=== PATIENT | female | born 1965 | race Caucasian/White ===

== ENCOUNTER 2020-10-08 06:27 | Outpatient (REF) | payer OTHER, SELFPAY ==
[2020-10-08 07:47] LABS: MANUAL DIFF FLAG NO
[2020-10-08 07:53] LABS: Basophils Absolute Auto 0.1 X10*3/uL (0.0-0.2); Basophils Percent Auto 0.9 % (0-2); Eosinophils Absolute Auto 0.2 X10*3/uL (0.0-0.4); Eosinophils Percent Auto 3.3 % (0-4); Hematocrit 43.9 % (37-47); Hemoglobin 14.3 g/dl (12.0-16.0); Imm Gran Abs Auto 0.01 X10*3/uL (0.00-0.03); Imm Gran Pct Auto 0.2 % (0.0-0.4); Lymphocytes Absolute Auto 2.2 X10*3/uL (1.2-4.9); Lymphocytes Percent Auto 37.7 % (20-40); Mean Corpuscular HGB Conc 32.6 g/dl (31.0-35.0); Mean Corpuscular Volume 92.2 fL (80-98); Mean Platelet Volume 9.9 fL (9.4-12.3); Monocytes Absolute Auto 0.4 X10*3/uL (0.1-1.2); Monocytes Percent Auto 7.2 % (2-11); Neutrophils Absolute Auto 2.9 X10*3/uL (2.0-8.3); Neutrophils Percent Auto 50.7 % (45-73); Platelet Count 276 X10*3/uL (160-400); Red Blood Count 4.76 X10*6/uL (4.20-5.50); Red Cell Distribution Width 12.9 % (11.0-16.0); White Blood Count 5.7 X10*3/uL (4.8-10.8)
[2020-10-08 08:17] LABS: Alanine Aminotransferase 14 U/L (0-31); Albumin Level 4.3 g/dL (3.5-5.0); Alkaline Phosphatase 82 U/L (39-117); Anion Gap 14 (12-20); Aspartate Amino Transferase 16 U/L (5-31); Bilirubin Total 0.3 mg/dL (0.0-1.0); Blood Urea Nitrogen 22 mg/dL (9-16); Calcium 9.4 mg/dL (8.4-10.2); Carbon Dioxide 25 mmol/L (22-29); Chloride 109 mmol/L (96-108); Cholesterol 237 mg/dL; Estimated Glomerular Filt Rate > 60; Glucose Fasting 100 mg/dL (60-99); HDL Cholesterol 75 mg/dL; LDL Cholesterol Calculated 151 mg/dl; Sodium 143 mmol/L (135-145); Total Protein 6.6 g/dL (6.5-8.0); Triglycerides 56 mg/dL
[2020-10-08 08:27] LABS: Thyroid Stimulating Hormone 1.01 uIU/mL (0.32-4.0)
[2020-10-12 20:37] LABS: Vitamin D 25-OH, D2 <4 ng/mL; Vitamin D 25-OH, D3 33 ng/mL; Vitamin D 25-OH, Total 33 ng/mL (30-100)
== END 2020-10-08 06:28 | disposition home or self-care (01) ==
LOC: HO.LAB 06:27
PROVIDERS: PCP Internal Medicine; Visit Provider Internal Medicine
DX: E66.3 Overweight (principal); E55.9 Vitamin D deficiency, unspecified
CPT/HCPCS: 36415; 80053; 80061; 82306; 84443; 85025

== ENCOUNTER 2020-10-15 08:30 | Outpatient (REF) | payer OTHER, SELFPAY ==
--- NOTE | ~2020-10-15 | XR_ITS ---
EXAMINATION: XR LUMBOSACRAL SPINE CLINICAL INFORMATION: Sciatica right side. COMPARISON: 04/11/2016 TECHNIQUE: Three views of the lumbosacral spine. FINDINGS: There are 5 nonrib-bearing lumbar vertebra. No acute fracture, spondylolisthesis, or spondylolysis identified. There is some marginal spurring seen at the 3-4 disc space level. Pedicles are intact. Sacroiliac joints unremarkable. There is calcification seen anterior to the L2 and L3 vertebral bodies which may be vascular in nature or posttraumatic. XR/XR lumbar spine 2-3V IMPRESSION: No significant lumbar spine abnormality appreciated. Stable appearance compared to previous study of 04/11/2016.
== END 2020-10-15 08:31 | disposition home or self-care (01) ==
LOC: HO.XRAY 08:30
PROVIDERS: PCP Internal Medicine; Visit Provider Internal Medicine
DX: M54.31 Sciatica, right side (principal)
CPT/HCPCS: 72100

== ENCOUNTER 2021-10-04 07:49 | Outpatient (REF) | payer OTHER, SELFPAY ==
--- NOTE | ~2021-10-04 | MM_ITS ---
EXAMINATION: MM SCREENING DIGITAL BREAST TOMOSYNTHESIS, BILATERAL CLINICAL INFORMATION: Screening. Asymptomatic. The lifetime risk of breast cancer based on the Tyrer-Cuzick Model is 13%. COMPARISON: Mammography: 07/23/2017, 03/08/2016. TECHNIQUE: Digital breast tomosynthesis is performed in both the craniocaudal and mediolateral oblique views along with computer-aided detection (CAD). Synthesized 2D images are generated from the tomosynthesis. FINDINGS: There are scattered areas of fibroglandular density (ACR BI-RADS breast composition Category b). There are no significant masses, abnormal calcifications, or other abnormalities. Parenchymal pattern is similar to prior studies. No developing density or interval architectural abnormality. The skin contours are smooth. MM/MM tomosynthesis screening BI IMPRESSION: No mammographic evidence of malignancy. ASSESSMENT: BI-RADS 1: Negative RECOMMENDATION: Routine annual mammography screening. This patient's information was entered into a reminder system with a target due date for their next mammogram.
[2021-10-04 09:10] LABS: Alanine Aminotransferase 14 U/L (0-31); Albumin Level 4.3 g/dL (3.5-5.0); Alkaline Phosphatase 83 U/L (39-117); Anion Gap 11 (12-20); Aspartate Amino Transferase 16 U/L (5-31); Bilirubin Total 0.4 mg/dL (0.0-1.0); Blood Urea Nitrogen 20 mg/dL (9-16); Calcium 9.5 mg/dL (8.4-10.2); Carbon Dioxide 28 mmol/L (22-29); Chloride 106 mmol/L (96-108); Cholesterol 253 mg/dL; Estimated Glomerular Filt Rate > 60; Glucose Fasting 102 mg/dL (60-99); HDL Cholesterol 70 mg/dL; LDL Cholesterol Calculated 173 mg/dl; Potassium 5.1 mmol/L (3.3-5.1); Sodium 140 mmol/L (135-145); Total Protein 6.8 g/dL (6.5-8.0); Triglycerides 54 mg/dL
[2021-10-08 13:20] LABS: Vitamin D 25-OH, D2 <4 ng/mL; Vitamin D 25-OH, D3 70 ng/mL; Vitamin D 25-OH, Total 70 ng/mL (30-100)
== END 2021-10-04 07:50 | disposition home or self-care (01) ==
LOC: HO.MAMMO 07:49
PROVIDERS: PCP Internal Medicine; Visit Provider Internal Medicine
DX: Z12.31 Encounter for screening mammogram for malignant neoplasm of breast (principal); E78.5 Hyperlipidemia, unspecified; E78.00 Pure hypercholesterolemia, unspecified; E55.9 Vitamin D deficiency, unspecified
CPT/HCPCS: 36415; 77063; 77067; 80053; 80061; 82306

== ENCOUNTER 2022-03-10 08:32 | Emergency (ER) | payer OTHER, SELFPAY ==
--- NOTE | ~2022-03-10 | XR_ITS ---
EXAMINATION: XR SHOULDER, LEFT CLINICAL INFORMATION: Anterior shoulder pain COMPARISON: None TECHNIQUE: AP external rotation, Grashey, scapular Y, and axillary views of the left shoulder. FINDINGS: The bones and soft tissues are normal. No fracture. Glenohumeral and acromioclavicular alignment is anatomic with normal joint space. No abnormal soft tissue calcifications. XR/XR shoulder LT min 2V IMPRESSION: Normal left shoulder.
[2022-03-10 08:37] VITALS: BP 134/97; PULSE 84; RESP 16; TEMP 36.4; O2SAT 100; BMI 27.8
--- NOTE | 2022-03-10 08:58 | ED_ITS ---
HPI - Extremity Problem General Chief complaint: Extremity Injury, Upper Stated complaint: L Arm Pain No Injury Time Seen by Provider: 03/10/22 08:57 Source: patient Mode of arrival: ambulatory Limitations: no limitations History of Present Illness HPI Narrative: 56 yo female with no significant medical history presents to the ER for evaluation of nontraumatic left shoulder pain that started while she was at work 2 days ago. She reports the pain was gradual and has slowly gotten worse over the last couple of days. She reports the pain is located in the anterior aspect of her left shoulder, worse with palpation and any movement. She states she is now having difficulty washing her hair, getting dressed. She reports the pain is throbbing in nature and she has been taking naproxen with brief improvement i n the pain. Once the naproxen wears off the pain returns. She states the pain is starting to extend into the proximal upper arm. She has no numbness, weakness, tingling. 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 MD Complaint: joint pain Onset (ago): day(s) (2) Pain Consistency: constant Location: left and upper extremity Severity scale (1-10): 7 Quality: aching and other (Throbbing) Radiation: distal Relieving factors: immobilization and medication Exacerbating factors: range of motion and palpation Associated symptoms: denies other symptoms Related Data Home Medications Medication Instructions Recorded Confirmed amitriptyline 25 mg tablet 25 mg PO BEDTIME 09/26/21 09/26/21 rizatriptan 10 mg disintegrating 10 mg PO DAILY PRN 09/26/21 09/26/21 tablet topiramate 100 mg tablet 100 mg PO BID 09/26/21 09/26/21 Previous Rx's Medication Instructions Recorded cholecalciferol (vitamin D3) 25 25 mcg PO DAILY 90 days #90 caps 10/04/21 mcg (1,000 unit) capsule naproxen 500 mg tablet 500 mg PO BID PRN pain 30 days #60 03/06/22 tabs oxycodone 5 mg tablet 5 mg PO Q8H PRN severe pain (scale 03/10/22 score 7-10) #7 tabs Allergies Allergy/AdvReac Type Severity Reaction Status Date / Time barium sulfate Allergy Intermediate headache Verified 09/26/21 09:05 codeine [CODEINE] Allergy Intermediate HIVES, rash Verified 09/26/21 09:05 Penicillins [PENICILLINS] Allergy Intermediate HIVES Verified 09/26/21 09:05 cyclobenzaprine AdvReac Intermediate Dizziness Verified 09/26/21 09:05 Review of Systems Review of Systems: Constitutional: No Fever, No Chills Cardiovascular: No Chest Pain, No SOB Gastrointestinal: No Nausea, No Vomiting, No abdominal Pain Musculoskeletal: + joint pain, + Myalgias Skin: No Skin Lesions, No rash Neuro: No Weakness, No Numbness, No Headache Psych: No Anxiety/Panic, No Depression Heme/Lymph: No Bruising, No Lymphadenopathy PMFSH Past Medical History Medical History (Updated 03/10/22 @ 10:15 by GISELL Fay) Encounter for physical examination Headache Hypovitaminosis D Overweight Pure hypercholesterolemia Right sided sciatica Surgical History History of hysterectomy History of tonsillectomy Family History Family History Mother Diabetes Hypertension Father Hepatitis Hypertension Social History Social History Housing: House Alcohol intake: never Patient Tobacco Use Status: Current everyday Tobacco user Tobacco use type: Cigarette Cigarettes Per Day: 15 e-Cigarette/Vaping Use: Never Used Second Hand Smoke Exposure: No Advance Directives: No Advance Directives Information Provided: Yes service: No Current occupational status: employed Current occupational exposures/hazards: No Cognitive needs: No Hearing needs: No Vision needs: No Physical Exam Vital Signs: Vital Signs: Last Vital Signs Temp 97.5 F 03/10/22 08:37 Pulse 84 03/10/22 08:37 Resp 16 03/10/22 08:37 BP 134/97 H 03/10/22 08:37 Pulse Ox 100 03/10/22 08:37 O2 Del Method 03/10/22 08:37 BMI result Body Mass Index 27.8 Appearance: Alert. Oriented X3. No acute distress. HEENT: normal inspection CVS: Normal heart rate and rhythm. Pulses normal. Respiratory: No respiratory distress. Skin: Skin warm and dry. Normal skin color. Normal skin turgor. No rashes. Extremities: Normal inspection of the bilateral shoulders. Anterior pain elicited with abduction at 45 degrees both anterior and laterally. Limited range of motion due to pain. Neurovascularly intact distally. No posterior tenderness. Neuro: Oriented X 3. No motor deficit. No sensory deficit. Course Course Course Narrative: 56-year-old female presents to the ER with nontraumatic left shoulder pain for the last 2 or 3 days. Pain is worse with palpation and range of motion. No injury. X-ray today is normal. She is in the range of motion limitations due to pain. Improvement with NSAIDs. Possible tendinitis or bursitis. Will treat with NSAIDs, pain control. Will provide sling for brief symptomatic relief and have her follow-up with orthopedics. We discussed gentle range of motion pendulum exercises which she will attempt to do once pain is better controlled. Stable for discharge home with outpatient follow-up. Patient agrees with plan. Medications Administered Discontinued Medications Generic Name Dose Route Start Last Admin Trade Name Freq PRN Reason Stop Dose Admin Ketorolac Tromethamine 30 mg 03/10/22 09:44 03/10/22 09:58 Ketorolac Tromethamine 30 Mg/Ml Vial IM 03/10/22 09:45 30 mg ONCE ONE Administration Critical Care Time Critical Care Time Critical Care Time: No Discharge Plan Discharge Clinical Impression: Acute pain of left shoulder Patient Disposition: Home, Self-Care Instructions: Shoulder Bursitis (ED), Shoulder Pain (ED) Additional Instructions: Your x-ray today was normal. Recommend continuing naproxen 2 times a day for the next 5-7 days. Take with food. Take the prescribed narcotic pain medication as needed for severe pain. Where the provided sling for the next 48 hours. After that start with gentle range of motion. Follow-up with orthopedics for further evaluation and treatment. Name and number below. If you develop new or worsening symptoms call 911 or come back to the ER for further evaluation. Prescriptions: New oxycodone 5 mg tablet 5 mg PO Q8H PRN (Reason: severe pain (scale score 7-10)) Qty: 7 0RF Rx Instructions: Partial Fill upon patient request. No Action cholecalciferol (vitamin D3) 25 mcg (1,000 unit) capsule 25 mcg PO DAILY 90 Days Qty: 90 1RF naproxen 500 mg tablet 500 mg PO BID PRN (Reason: pain) 30 Days Qty: 60 1RF amitriptyline 25 mg tablet 25 mg PO BEDTIME topiramate 100 mg tablet 100 mg PO BID rizatriptan 10 mg tablet,disintegrating 10 mg PO DAILY PRN Referrals: [facility] [place] Orthopedic Surgeons [Provider Group] (Nontraumatic left shoulder pain, limited range of motion. X-ray normal.) Stand Alone Forms: Work/School Release Interventions: ED Discharge Assessment Last Done: 03/10/22 10:36
[2022-03-10] MEDS: Ketorolac Tromethamine 30 MG/ML VIAL IM (09:58)
== END 2022-03-10 10:37 | disposition home or self-care (01) ==
PROVIDERS: Emergency Provider Emergency Medicine Emergency Medical Services; PCP Internal Medicine
DX: M25.512 Pain in left shoulder (principal); Z79.899 Other long term (current) drug therapy
CPT/HCPCS: 73030; 96372; 99283; 99284; J1885

== ENCOUNTER 2022-10-05 07:49 | Outpatient (REF) | payer OTHER, SELFPAY ==
--- NOTE | ~2022-10-05 | MM_ITS ---
EXAMINATION: MM SCREENING DIGITAL BREAST TOMOSYNTHESIS, BILATERAL CLINICAL INFORMATION: Screening. Asymptomatic. The lifetime risk of breast cancer based on the Tyrer-Cuzick Model is 12%. COMPARISON: Mammography: 10/04/2021, 07/23/2017, 03/08/2016 TECHNIQUE: Digital breast tomosynthesis is performed in both the craniocaudal and mediolateral oblique views along with computer-aided detection (CAD). Synthesized 2D images are generated from the tomosynthesis. FINDINGS: There are scattered areas of fibroglandular density (ACR BI-RADS breast composition Category b). There are no significant masses, abnormal calcifications, or other abnormalities. No architectural abnormality or developing density or significant change from prior studies. The axilla and skin contours are unremarkable. MM/MM tomosynthesis screening BI IMPRESSION: No mammographic evidence of malignancy. ASSESSMENT: BI-RADS 1: Negative RECOMMENDATION: Routine annual mammography screening. This patient's information was entered into a reminder system with a target due date for their next mammogram.
[2022-10-05 09:40] LABS: Alanine Aminotransferase 12 U/L (0-31); Albumin Level 4.1 g/dL (3.5-5.0); Alkaline Phosphatase 88 U/L (39-117); Anion Gap 11 (12-20); Aspartate Amino Transferase 14 U/L (5-31); Bilirubin Total 0.6 mg/dL (0.0-1.0); Blood Urea Nitrogen 17 mg/dL (9-16); Calcium 9.6 mg/dL (8.4-10.2); Carbon Dioxide 29 mmol/L (22-29); Chloride 106 mmol/L (96-108); Cholesterol 228 mg/dL; Estimated Glomerular Filt Rate > 60; Glucose Fasting 104 mg/dL (60-99); HDL Cholesterol 68 mg/dL; LDL Cholesterol Calculated 144 mg/dl; Potassium 4.1 mmol/L (3.3-5.1); Sodium 142 mmol/L (135-145); Total Protein 6.8 g/dL (6.5-8.0); Triglycerides 84 mg/dL; Vitamin D 25-OH Total 56.4 ng/mL (>30)
== END 2022-10-05 07:50 | disposition home or self-care (01) ==
LOC: HO.MAMMO 07:49
PROVIDERS: PCP Internal Medicine; Visit Provider Internal Medicine
DX: Z00.00 Encounter for general adult medical examination without abnormal findings (principal); E55.9 Vitamin D deficiency, unspecified; E78.5 Hyperlipidemia, unspecified; Z12.31 Encounter for screening mammogram for malignant neoplasm of breast
CPT/HCPCS: 36415; 77063; 77067; 80053; 80061; 82306

== ENCOUNTER 2022-10-10 08:04 | Outpatient (REF) | payer OTHER, SELFPAY ==
--- NOTE | ~2022-10-10 | MM_ITS ---
EXAMINATION: BONE DENSITOMETRY CLINICAL INDICATION: Menopause. COMPARISON: None (current study represents initial baseline exam). TECHNIQUE: Using a [employer] DXA System (software version: 13.1) manufactured by [employer], dual-energy x-ray absorptiometry was performed of the lumbar spine and left hip. The images are of good technical quality. Summary results are attached. FINDINGS: AP SPINE L1-L4: BMD 1.122 g/cm2, Z-score 0.2, T-score -0.5, normal. LEFT FEMUR, NECK: BMD 0.779 g/cm2, Z-score -0.9, T-score -1.9, osteopenia. LEFT FEMUR, TOTAL: BMD 0.952 g/cm2, Z-score 0.1, T-score -0.4, normal. IDENTIFIED RISK FACTORS: Early menopause, hysterectomy, low calcium intake, secondary osteoporosis, tobacco use (current smoker). HISTORY OF FRACTURE: None listed. MEDICATIONS: Vitamin D. MM/XR DEXA axial skeleton IMPRESSION: 1. DIAGNOSIS: Osteopenia based on the lowest T-score value of -1.9 in the femoral neck applying World Health Organization criteria. 2. 10-YEAR FRACTURE RISK PREDICTION, FRAX: Major osteoporotic fracture (clinical spine, forearm, hip or shoulder) 4.7%. Hip fracture 0.8%. 3. Treatment Recommendations: NOF guidelines recommend consideration for treatment in postmenopausal women and men age 50 and older presenting with the following: -A hip or vertebral (clinical or morphometric) fracture. -T-score less than or equal to -2.5 at the femoral neck or spine after appropriate evaluation to exclude secondary causes. -Low bone mass at the hip or spine and a 10-year fracture probability by FRAX of greater than or equal to 3% for hip fracture or greater than or equal to 20% for major osteoporotic fracture based on the [place] adapted WHO algorithm. 4. Other Recommendations: All treatment decisions require clinical judgment and consideration of individual patient factors, including patient preferences, comorbidities, previous drug use, risk factors not captured in the FRAX model (e.g. frailty, falls, vitamin D deficiency, increased bone turnover, interval significant decline in bone density) and possible under or overestimation of fracture risk by FRAX. Additional medical evaluation for secondary cause of low bone mineral density may be appropriate. FUTURE SCAN RECOMMENDATION: People with diagnosed cases of osteoporosis or at high risk for fracture should have regular bone mineral density tests. For patients eligible for Medicare, routine testing is allowed once every 2 years. The testing frequency can be increased to one year for patients who have rapidly progressing disease, those who are receiving or discontinuing medical therapy to restore bone mass, or have additional risk factors.
== END 2022-10-10 08:05 | disposition home or self-care (01) ==
LOC: HO.MAMMO 08:04
PROVIDERS: PCP Internal Medicine; Visit Provider Internal Medicine
DX: Z13.820 Encounter for screening for osteoporosis (principal); Z78.0 Asymptomatic menopausal state
CPT/HCPCS: 77080

== ENCOUNTER 2022-11-17 13:42 | Outpatient (AMB) | payer OTHER, SELFPAY ==
--- NOTE | 2022-11-17 09:25 | A.OFFVIS_ITS ---
Intake Intake Visit Reasons: LDCT SD Allergies barium sulfate Allergy (Intermediate, Verified 10/03/22 08:59) headache codeine [CODEINE] Allergy (Intermediate, Verified 10/03/22 08:59) HIVES, rash Penicillins [PENICILLINS] Allergy (Intermediate, Verified 10/03/22 08:59) HIVES cyclobenzaprine Adverse Reaction (Intermediate, Verified 10/03/22 08:59) Dizziness HPI LDCT SD HPI Details Initial visit for this 57yo smoker with a 40PYH. Patient has been smoking since age 15 for 42 years at 1ppd. . Denies marijuana use. Denies second hand smoke exposure. Denies exposure to chemicals or substances like asbestos. . Denies known family history of lung cancer. Denies personal history of cancers. Denies chest CT in last year. . Denies recent travel outside the [place]. Denies recent respiratory illness or recent hospitalization for respiratory issues. Reports testing positive for COVID. Denies receiving COVID Vaccine. . Denies fever, chills, new/worsening cough, hemoptysis, hoarseness or dysphagia. Denies significant chest pain, significant dyspnea or unintentional weight loss. Patient Lung Cancer Screening Questionnaire reviewed with patient by provider. . Shared Decision Making Completed. Patient meets criteria. Discussed in detail with patient, the risk vs benefit of LDCT screening. Patient consents to proceed with scan. Discussed smoking cessation. [facility] Medical History (Updated 11/17/22 @ 13:47 by Michelle Schwarz PA-C) Headache Hypovitaminosis D Nicotine dependence, cigarettes, uncomplicated Overweight Pure hypercholesterolemia Right sided sciatica Surgical History (Updated 11/17/22 @ 13:56 by Michelle Schwarz PA-C) History of colonoscopy History of hysterectomy History of tonsillectomy Family History Mother Diabetes Hypertension Father Hepatitis Hypertension Social History (Updated 11/17/22 @ 13:48 by Michelle Schwarz PA-C) Housing: House Alcohol intake: never Patient Tobacco Use Status: Current everyday Tobacco user Tobacco use type: Cigarette Years Smoked: (onset 15yo, 1ppd x 42yrs, 40pyh) e-Cigarette/Vaping Use: Never Used Second Hand Smoke Exposure: No service: No Current occupational status: employed Current occupational exposures/hazards: No Cognitive needs: No Hearing needs: No Vision needs: No Assessment & Plan Assessment & Plan (1) Nicotine dependence, cigarettes, uncomplicated: Comment: (current smoker - onset 15yo, 1ppd x 42yrs, 40pyh) Code(s): F17.210 - Nicotine dependence, cigarettes, uncomplicated Plan: - SDM visit completed today in office. - Patient meets criteria for LDCT for lung cancer screening purposes and is asymptomatic. - Smoking cessation counseling offered. Patients can always call [phone]. - Will arrange for a LDCT scan of the chest for screening purposes at [facility]. - Risks, benefits, and alternatives were discussed in detail and the patient agrees to proceed. - Risks discussed include but are not limited to: radiation exposure, anxiety during testing and while awaiting results, false negatives, false positives and possibility of additional intervention such as further imaging or surgical procedures for benign disease. - Benefits are obviously detection of lung cancer at an early stage which can lead to improved outcomes. - Discussed the importance of screening program compliance with adherence to yearly LDCT scan as scheduled - or sooner interval scans for personalized screening regimen. - Discussed follow up plan. Our office will send a letter discussing results and if needed set up phone call and office visit based on CT findings. - Patient educated on results categorization and the management decisions for suspicious findings potentially found on the screening LDCT scan. Any patient with a Lung RADS score of 3 or 4 will be reviewed by a multidisciplinary team at [facility] to form a plan of action in regards to scan findings. - If further work up is warranted for a suspicious lung finding this will be followed by the Lung Cancer Screening program in conjunction with the Thoracic Surgery Department at [facility]. - A copy of the office note and LDCT will be sent to the patient's PCP - as well as documentation on any associated further plans of care. - Incidental findings on LDCT are the PCP's responsibility. These findings are indicated with an S finding on the LDCT Assessment. A note discussing the findings will be sent to the PCP who is then responsible for further management. - All questions answered.? Coding Level of Care Code Lung Cancer Screening [id number] Diagnoses Nicotine dependence, cigarettes, uncomplicated F17.210
== END 2022-11-17 13:53 | disposition home or self-care (01) ==
PROVIDERS: PCP Internal Medicine; Visit Provider Physician Assistant Medical
DX: F17.210 Nicotine dependence, cigarettes, uncomplicated (principal)
CPT/HCPCS: G0296

== ENCOUNTER 2022-11-17 13:56 | Outpatient (REF) | payer OTHER, SELFPAY ==
--- NOTE | ~2022-11-17 | CT_ITS ---
EXAMINATION: CT CHEST SCREENING CLINICAL INFORMATION: Current smoker. 43 pack-year history. COMPARISON: None available. TECHNIQUE: Multidetector volumetric CT imaging of the chest is performed without contrast using low dose technique. Additional 2D coronal and sagittal reformatted images and axial 3D maximum intensity projection (MIP) images are generated on the CT workstation. This CT examination was performed using dose optimization techniques as appropriate, variously including the following: *Automated exposure control *Adjustment of mA and/or kV according to patient size (this includes techniques or standardized protocols for targeted exams where dose is matched to indication/reason for exam; i.e. extremities or head) *Use of iterative reconstruction technique DLP: 38 mGy-cm FINDINGS: LUNGS: Emphysema. Mild biapical pleural and parenchymal scarring. 3 mm deeper right upper lobe apical nodule axial image 76 series 5. 2 x 5 mm linear peripheral or subpleural parenchymal density in the left upper lobe adjacent to the fissure axial image 166 series 5. 3 mm peripheral or subpleural anterior segment right upper lobe nodule axial image 159 series 5. 2 mm central right upper lobe nodule axial image 203 series 5. 3 mm left lower lobe peripheral or subpleural nodule axial image 260 series 5. 2 mm right upper lobe nodule near the minor fissure axial spine. No endobronchial or endotracheal lesion. MEDIASTINUM: The mediastinum is normal. CORONARY ARTERY CALCIFICATION: Mild PLEURA: There is no pleural effusion. No pleural mass or thickening. AXILLA: No lymphadenopathy. UPPER ABDOMEN: Unremarkable OSSEOUS STRUCTURES: Degenerative changes of the spine. CT/CT lung screening IMPRESSION: Emphysema. Mild biapical pleural and parenchymal scarring. Small pulmonary nodules or micronodules. ASSESSMENT: Lung-RADS category 2: Benign RECOMMENDATION: Annual low-dose chest CT follow-up recommended
== END 2022-11-17 13:57 | disposition home or self-care (01) ==
LOC: HO.CT 13:56
PROVIDERS: PCP Internal Medicine; Visit Provider Physician Assistant Medical
DX: Z12.2 Encounter for screening for malignant neoplasm of respiratory organs (principal); F17.210 Nicotine dependence, cigarettes, uncomplicated
CPT/HCPCS: 71271; G0296

== ENCOUNTER 2023-10-08 08:08 | Outpatient (AMB) | payer OTHER, SELFPAY ==
[2023-10-08 08:22] VITALS: BP 110/70; BMI 24.5
--- NOTE | 2023-10-08 08:22 | A.OFFPC_ITS ---
Vital Signs 10/08/23 08:22 Height 5 ft 4 in Weight 143 lb BMI 24.5 BP 110/70 Blood Pressure Location Lt brachial Position Sitting Intake Visit Reasons: Annual Exam Intake Note: Patient here for an annual physical exam Ocean Fishing Guide Required: No Accompanied by: Self / Same As Patient Allergies barium sulfate Allergy (Intermediate, Verified 10/08/23 08:46) headache codeine [CODEINE] Allergy (Intermediate, Verified 10/08/23 08:46) HIVES, rash Penicillins [PENICILLINS] Allergy (Intermediate, Verified 10/08/23 08:46) HIVES cyclobenzaprine Adverse Reaction (Intermediate, Verified 10/08/23 08:46) Dizziness Medication List - Last Reconciled 10/08/23 by Jazmin Frias MD cholecalciferol (vitamin D3) 25 mcg PO DAILY 90 days naproxen 500 mg PO BID PRN 30 days Tobacco use date assessed: 10/08/23 Dental Screening Dental Screen Date: 10/08/23 Did you have a dental visit in the last 12 months?: No Did you have a dental problem in the last 6 months where you did not have access to dental care?: No Was dental information given to patient?: Patient has dentist HPI HPI Comments History of Present Illness Details This is a 58-year-old female that comes for her physical exam. Last mammogram was 10/10/2022 and has an appointment for this week for another mammogram. Last colonoscopy was 2016 and was normal. No need for Pap smear due to hysterectomy. Has elevated cholesterol and this will be repeated. No chest pain or shortness on breath. Complains of left leg pain that started about a month ago. She has a smoker and was advised to quit. Wants to try Chantix again. Had low-dose CT of the chest lung cancer screening last year which was negative. [facility] Medical History (Updated 10/08/23 @ 09:18 by Jazmin Frias MD) Nicotine dependence, cigarettes, uncomplicated Hypovitaminosis D Pure hypercholesterolemia Right sided sciatica Headache Overweight Surgical History History of colonoscopy History of tonsillectomy History of hysterectomy Family History Mother Diabetes Hypertension Father Hepatitis Hypertension Social History Housing: House Alcohol intake: never Patient Tobacco Use Status: Current everyday Tobacco user Tobacco use type: Cigarette Cigarettes Per Day: 10 Years Smoked: (onset 15yo, 1ppd x 42yrs, 40pyh) e-Cigarette/Vaping Use: Never Used Second Hand Smoke Exposure: No service: No Current occupational status: employed Current occupational exposures/hazards: No Cognitive needs: No Hearing needs: No Vision needs: Yes Questionnaire PHQ-9 Over the last 2 weeks, how often have you been bothered by any of the following problems? 1. Little interest or pleasure in doing things: not at all 2. Feeling down, depressed, or hopeless: not at all 3. Trouble falling or staying asleep, or sleeping too much: not at all 4. Feeling tired or having little energy: not at all 5. Poor appetite or overeating: not at all 6. Feeling bad about yourself - or that you are a failure or have let yourself or your family down: not at all 7. Trouble concentrating on things, such as reading the newspaper or watching television: not at all 8. Moving or speaking so slowly that other people could have noticed. Or the opposite - being so fidgety or restless that you have been moving around a lot more than usual: not at all 9. Thoughts that you would be better off or of hurting yourself in some way: not at all Total score: 0 Depression Screening Interpretation: Negative Depression Screening Done: Yes 84600 - PHQ-9 Billing: Yes Source: Developed by Drs. Alli Hinds, Janeen Canchola, Jeffery Garza and colleagues, with an educational akiko from [facility]. Thrive Questionnaire Date Thrive assessed: 10/08/23 I am a: Patient What is your living situation today?: I have a steady place to live Within the past 12 months, did the food you bought not last and you didn't have the money to get more?: Never true Within the past 12 months, did you worry whether your food would run out before you got money to buy more?: Never true Do you have trouble paying for medicines?: No Do you have trouble getting transportation to medical appointments?: No Do you have trouble paying your heating and electricity bill?: No Do you have trouble taking care of your child, family member or friend?: No Do you have trouble with day-to-day activities such as bathing, preparing meals, shopping, managing finances, etc.?: No Are you currently unemployed and looking for a job?: No Are you interested in more education?: No Please select the resources that you would like help with: None Currently or been in a relationship where the following occur: no concerns reported THRIVE Score: 0 AUDIT C Alcohol Use Questionnaire (AUDIT-C) 1. How often do you have a drink containing alcohol?: Never Total Score: 0 KENNETH-7 AMB Questionnaire KENNETH-7 Date KENNETH - 7 assessed: 10/08/23 Feeling nervous, anxious, or on edge: 0 = Not at all Not being able to stop or control worryin = Not at all Worrying too much about different things: 0 = Not at all Trouble relaxin = Not at all Being so restless that it is hard to sit still: 0 = Not at all Becoming easily annoyed or irritable: 0 = Not at all Feeling afraid as if something awful might happen: 0 = Not at all Total KENNETH-7 score (0-4 normal; 5-9 mild; 10-14 moderate; 15-21 severe): 0 Source: Developed by Drs. Alli Hinds, Janeen Canchola, Jeffery Garza and colleagues, with an educational akiko from [facility]. KENNETH-7 Assessment Billing KENNETH-7 Assessment Tool: KENNETH-7 Assessment 16998 Review of Systems Const All systems reviewed & are unremarkable except as noted in HPI and below Eyes Reports no additional complaints, Denies change in vision and Denies other visual disturbances Card Denies chest pain at rest, Denies chest pain with activity, Denies edema, Denies irregular heart rhythm, Denies claudication, Denies dyspnea, Denies dyspnea on exertion, Denies orthopnea, Denies paroxysmal nocturnal dyspnea and Denies slow heart rate Resp Denies cough, Denies dyspnea and Denies dyspnea on exertion GI Denies abdominal pain, Denies change in bowel habits, Denies excessive flatus, Denies nausea and Denies vomiting Denies urinary incontinence, Denies urinary hesitancy and Denies urinary urgency Physical exam (Primary Care) Vital Signs: Last Vital Signs BP 110/70 10/08/23 08:22 BMI result Body Mass Index 24.5 Tobacco/Smoking Status: Tobacco use Status Tobacco use date assessed 10/08/23 10/08/23 08:28 Patient Tobacco Use Status Current everyday Tobacco 10/08/23 08:28 Tobacco use type Cigarette 10/08/23 08:28 e-Cigarette/Vaping Use Never Used 10/08/23 08:28 Are you ready to quit: Yes Tobacco cessation counseling provided: Yes Items discussed: QuitWorks Relapse Prevention: discussed the importance of a supportive environment, discussed negative mood or depression after quitting, weight gain after smoking is common and discussed dietary, exercise and/or lifestyle changes Number of minutes spent counselin CPT code: 44105 - 4-10 Minutes PHQ-9: PHQ-9 Score PHQ-9: Total score 0 10/08/23 08:48 Depression Screening Interpretation: Negative Thrive Assessment: Date of Thrive Assessment Date Thrive assessed 10/08/23 10/08/23 08:28 Currently or been in a relationship where the following occur: no concerns reported Const Orientation/consciousness: patient oriented x3 HENMT Head: Yes normal to inspection, Yes normocephalic and Yes atraumatic Ears: external ears normal Eyes General: appearance normal, both eyes and all related structures Eyelids: Yes eyelids normal Conjunctivae: conjunctivae normal Neck Neck: Yes normal visual inspection and Yes supple Resp Effort & Inspection: normal respiratory effort Auscultation: clear to auscultation bilaterally Cardio Jugular venous distension: no JVD Rate: regular rate Rhythm: regular rhythm Heart sounds: S1 normal heart sound present and S2 normal heart sound present GI Inspection: Yes normal to inspection Palpation (GI): Soft to palpation and nontender Auscultation: normal bowel sounds Skin General skin exam: no rashes or lesions noted Neuro General: patient oriented x3 and no focal motor deficits Extrem General: Yes full ROM Psych Appearance: grossly normal Assessment and Plan Assessment & Plan (1) Physical exam: Code(s): Z00.00 - Encounter for general adult medical examination without abnormal findings Plan: Repeat in a year. Orders: Orders Magnesium Today R25.2 - Cramp and spasm Lipid Panel Today E78.5 - Hyperlipidemia, unspecified Comprehensive [place]. Panel Fast Today E78.00 - Pure hypercholesterolemia, unspecified Vitamin D 25-OH Total Today E55.9 - Vitamin D deficiency, unspecified US venous duplex LE LT Today M79.605 - Pain in left leg Referrals Thoracic/General Surgery Referral F17.210 - Nicotine dependence, cigarettes, uncomplicated Medications: New varenicline (Chantix Starting Month Box) 1 ea PO PER PKG DIR 30 days PRN 53 ea 0RF smoking cessation Coding Level of Care Code Est Pt Prev Care 40-64y(81876) Diagnoses Physical exam Z00.00 Additional Codes KENNETH-7 Assessment Billing - KENNETH-7 Assessment Tool: KENNETH-7 Assessment 92257 ([id number]) Vital Signs *Quality* - CPT code: 05882 - 4-10 Minutes ([id number]) Time Spent (min) 35
== END 2023-10-08 09:07 | disposition home or self-care (01) ==
PROVIDERS: PCP Internal Medicine; Visit Provider Internal Medicine
DX: Z00.00 Encounter for general adult medical examination without abnormal findings (principal); F17.210 Nicotine dependence, cigarettes, uncomplicated; E55.9 Vitamin D deficiency, unspecified
CPT/HCPCS: 99396; 99406

== ENCOUNTER 2023-10-08 09:12 | Outpatient (REF) | payer OTHER, SELFPAY ==
--- NOTE | ~2023-10-08 | US_ITS ---
EXAMINATION: US VENOUS ULTRASOUND WITH DOPPLER LOWER EXTREMITY, LEFT CLINICAL INFORMATION: Left-sided lower extremity pain COMPARISON: None available. TECHNIQUE: Ultrasound of the deep veins is performed from the hip to the calf with compression sonography and color and pulse Doppler assessment. Spectral analysis with color-flow imaging is performed. FINDINGS: There is normal venous compression and respiratory variation and augmented flow. The visualized common femoral vein, superficial femoral vein, profunda femoral vein, popliteal vein, and the trifurcation region shows no evidence of deep venous thrombosis. There is no significant popliteal fossa cyst. The right common femoral vein appears unremarkable. If the patient's symptoms persist, followup ultrasound in 5 days 7 days might be of value to exclude proximal propagation from a non-visualized calf vein. US/US venous duplex LE IMPRESSION: No DVT demonstrated in the left lower extremity.
== END 2023-10-08 09:13 | disposition home or self-care (01) ==
LOC: HO.US 09:12
PROVIDERS: PCP Internal Medicine; Visit Provider Internal Medicine
DX: M79.605 Pain in left leg (principal)
CPT/HCPCS: 93971

== ENCOUNTER 2023-10-12 08:07 | Outpatient (REF) | payer OTHER, SELFPAY | END 2023-10-12 08:08 | disposition home or self-care (01) | LOC: HO.MAMMO 08:07 | PROVIDERS: PCP Internal Medicine; Visit Provider Internal Medicine | DX: Z12.31 Encounter for screening mammogram for malignant neoplasm of breast (principal) | CPT/HCPCS: 77063; 77067 ==

== ENCOUNTER → 2023-10-12 08:30 | Outpatient (BNV) | payer OTHER, SELFPAY | PROVIDERS: PCP Internal Medicine; Visit Provider Radiology Diagnostic Radiology | DX: Z12.31 Encounter for screening mammogram for malignant neoplasm of breast (principal) | CPT/HCPCS: 77063; 77067 ==

== ENCOUNTER 2023-10-19 06:34 | Outpatient (REF) | payer OTHER, SELFPAY ==
[2023-10-19 07:49] LABS: Alanine Aminotransferase 14 U/L (0-31); Albumin Level 3.9 g/dL (3.5-5.0); Alkaline Phosphatase 70 U/L (39-117); Anion Gap 12 (12-20); Aspartate Amino Transferase 10 U/L (5-31); Bilirubin Total 0.4 mg/dL (0.0-1.0); Blood Urea Nitrogen 20 mg/dL (9-16); Calcium 9.4 mg/dL (8.4-10.2); Carbon Dioxide 27 mmol/L (22-29); Chloride 106 mmol/L (96-108); Cholesterol 203 mg/dL (<200); Estimated Glomerular Filt Rate > 60; Glucose Fasting 97 mg/dL (60-99); HDL Cholesterol 71 mg/dL (>40); LDL Cholesterol Calculated 116 mg/dL (<100); Magnesium 2.1 mg/dL (1.6-2.6); Potassium 4.3 mmol/L (3.3-5.1); Sodium 141 mmol/L (135-145); Total Protein 6.3 g/dL (6.5-8.0); Triglycerides 84 mg/dL (<150)
[2023-10-19 08:08] LABS: Vitamin D 25-OH Total 42.2 ng/mL (>30)
== END 2023-10-19 06:35 | disposition home or self-care (01) ==
LOC: HO.LAB 06:34
PROVIDERS: PCP Internal Medicine; Visit Provider Internal Medicine
DX: R25.2 Cramp and spasm (principal); E78.00 Pure hypercholesterolemia, unspecified; E78.5 Hyperlipidemia, unspecified; E55.9 Vitamin D deficiency, unspecified
CPT/HCPCS: 36415; 80053; 80061; 82306; 83735

== ENCOUNTER 2023-12-17 14:47 | Outpatient (REF) | payer OTHER, SELFPAY ==
--- NOTE | ~2023-12-17 | CT_ITS ---
EXAMINATION: CT CHEST LOW-DOSE SCREENING WITHOUT CONTRAST CLINICAL INFORMATION: Asymptomatic patient meeting criteria for lung screening. Nicotine dependence PATIENT PACK-YEAR HISTORY: 1 PPD x 43 years. Current Smoker: Yes. If former smoker, years since quitting: Not applicable. COMPARISON: CT lung screening 11/17/2022. TECHNIQUE: Multidetector volumetric non-contrast CT imaging of the chest was obtained on a Siemens SOMATON Definition scanner using low-dose screening CT technique. Axial thin section 0.625 mm reformations in soft tissue and lung windows were obtained. Sagittal and coronal reformations were obtained. Axial MIP images were also created and reviewed. RECONSTRUCTED WIDTH: 1.25 mm x 1.[address] examination was performed using dose optimization techniques as appropriate, variously including the following: *Automated exposure control. *Adjustment of mA and/or kV according to patient size (this includes techniques or standardized protocols for targeted exams where dose is matched to indication/reason for exam; i.e. extremities or head). *Use of iterative reconstruction technique. TOTAL EXAM DLP: 34 mGy-cm CTDIvol: 1.06 mGy FINDINGS: LUNGS: Lungs bilaterally symmetrically expanded. There is moderate emphysema. Mild bronchial thickening is present. No effusion or pneumothorax. Central airways patent. Pulmonary Nodules: Some small pulmonary nodules are present that are unchanged. As an example, there is a 5 mm right upper lobe nodule (5:51 compare prior 5:76). Wong images of all have been saved. There is no new, increasing-sized or suspicious nodules seen. LYMPHATIC STRUCTURES: No mediastinal, hilar or axillary adenopathy or free fluid collection. THYROID GLAND: The thyroid is generous in size. There may be a subtle 1.5 cm left thyroid nodule present (3:3). CARDIOVASCULAR STRUCTURES: Aortic and heart size normal. Mild coronary artery calcifications. No pericardial effusion. UPPER ABDOMEN: Included portions of the solid organs in the upper abdomen unremarkable on noncontrast imaging. OSSEOUS STRUCTURES: No suspicious focal findings. SPINAL COMPRESSION: Absent. CT/CT lung screening IMPRESSION: No findings suspicious for malignancy/pulmonary nodule(s)/other. LUNG-RADS CATEGORY ASSESSMENT: 2: Benign. INCIDENTAL FINDINGS (S CATEGORY): Finding: No incidental findings. Significance Category: Normal or normal variant. RECOMMENDATION: Low dose lung CT. overall in 1 year. Visual estimate of coronary calcified plaque burden: Mild. However, this exam cannot replace a dedicated cardiac CT calcium score for accurate assessment. Electronically signed by: Wilmer Ramirez MD 12/30/2023 09:06 PM EDT RP
== END 2023-12-17 14:48 | disposition home or self-care (01) ==
LOC: HO.CT 14:47
PROVIDERS: PCP Internal Medicine; Visit Provider Physician Assistant Medical
DX: Z12.2 Encounter for screening for malignant neoplasm of respiratory organs (principal); F17.210 Nicotine dependence, cigarettes, uncomplicated
CPT/HCPCS: 71271

== ENCOUNTER 2024-10-17 08:08 | Outpatient (REF) | payer OTHER, SELFPAY ==
--- OUTSIDE RECORDS SUMMARY | 2024-10-17 08:12 | XMS_ITS | Patient Health Record ---
Author Organization [facility] Address [address] [place] [address] Care Team Providers Care Delivery Room Supervisor Name Role Phone Jazmin Sosa Primary Care Provider Dontrell Timmons Jr Unavailable [phone] Allergies Allergen (clinical drug ingredient) Drug/Non Drug Allergy documented on EMR Reaction Allergy Type Onset Date Status Penicillin Unknown Drug Allergy Active codeine Codeine Sulfate Unknown Drug Allergy A ctive Reason For Referral No Information Medications Medication SIG (Take, Route, Frequency, Duration) Notes Start Date End Date Status Gabapentin 100 MG 1 capsule Orally kristie ry 8 hours Active Colyte with Flavor Packs 240 GM As directed Orally Over the specified time. for 1 day(s) 05/24/2016 Active Problems Problem Type SNOMED Code ICD Code Onset Dates Problem Status W/U Status Risk Notes Problem [id number] Blood in stool (K92.1) Active confirmed Plan Of Treatment Future Test Test Name Order Date COLONOSCOPY 05/24/2016 Insurance Providers Payer Name Payer Address Payer Phone Subscriber Number Group Number Insured Name Patient Relationship to Insured Coverage Start Date Coverage End Date [facility] [address] [place] [address] [id number] REINALDO HUGHES Self - patient is the insured Medical (General) History Medical History History ICD Code arthritis abdominal aortic aneurysm peripheral arterial disease migraine headaches Surgical History Surgery Date(Month/Year) hysterectomy, partial for fibroids 2006 tonsillectomy
== END 2024-10-17 08:09 | disposition home or self-care (01) ==
LOC: HO.MAMMO 08:08
PROVIDERS: PCP Internal Medicine; Visit Provider Internal Medicine
DX: Z12.31 Encounter for screening mammogram for malignant neoplasm of breast (principal)
CPT/HCPCS: 77063; 77067

== ENCOUNTER → 2024-10-17 08:15 | Outpatient (BNV) | payer OTHER, SELFPAY | PROVIDERS: PCP Internal Medicine; Visit Provider Internal Medicine | DX: Z12.31 Encounter for screening mammogram for malignant neoplasm of breast (principal) | CPT/HCPCS: 77063; 77067 ==

== ENCOUNTER 2025-01-19 07:19 | Outpatient (REF) | payer OTHER, SELFPAY ==
--- NOTE | ~2025-01-19 | CT_ITS ---
CLINICAL HISTORY: F17.210 - Nicotine dependence, cigarettes, uncomplicated CT lung cancer screening (LDCT) Comparison: 12/17/2023 Technique: Axial CT images of the chest using low-dose technique. Referring provider counseled the patient on shared decision-making for LDCT screening. Additional counseling was provided on smoking cessation. Effective radiation dose total: DLP 25.8 mGycm, CTDIvol 0.8 mGy. Findings: Lung: There are no new solid or semi solid lesions Coronary artery calcifications: Moderate Limited upper abdomen: Unremarkable Other: None IMPRESSION: Lung-RADS 1, negative. Continued annual screening recommended This document has been electronically signed by: Joey Nguyen MD on 01/19/2025 08:35:12
--- OUTSIDE RECORDS SUMMARY | 2025-01-19 07:21 | XMS_ITS | Patient Health Record ---
Author Organization [facility] Address [address] [place] [address] Care Team Providers Care Store Mgr Name Role Phone Jazmin Sosa Primary Care Provider Dontrell Timmons Jr Unavailable Allergies Allergen (clinical drug ingredient) Drug/Non Drug [...] Problem Status W/U Status Risk Notes Problem [id number] Blood in stool (K92.1) Active confirmed Plan Of Treatment Future Test Test Name Order Date COLONOSCOPY 05/24/2016 Insurance Providers Payer Name Payer Address Payer Phone Subscriber Number Group Number Insured Name Patient Relationship to Insured Coverage Start Date Coverage End Date [facility] [address] [place] [phone] [id number] REINALDO HUGHES Self - patient is the insured Medical (General) History Medical History History ICD Code arthritis abdominal aortic aneurysm peripheral arterial disease migraine headaches Surgical History Surgery Date(Month/Year) hysterectomy, partial for fibroids 2006 tonsillectomy
== END 2025-01-19 07:20 | disposition home or self-care (01) ==
LOC: HO.CT 07:19
PROVIDERS: PCP Internal Medicine; Visit Provider Physician Assistant Medical
DX: Z12.2 Encounter for screening for malignant neoplasm of respiratory organs (principal); F17.210 Nicotine dependence, cigarettes, uncomplicated
CPT/HCPCS: 71271

== ENCOUNTER → 2025-01-19 07:20 | Outpatient (BNV) | payer OTHER, SELFPAY | PROVIDERS: PCP Internal Medicine; Visit Provider Specialist | DX: F17.210 Nicotine dependence, cigarettes, uncomplicated (principal) | CPT/HCPCS: 71271 ==